=== PATIENT | female | born 1935 | race Caucasian/White ===

== ENCOUNTER 2018-01-20 05:41 | Inpatient (IN) | payer MEDICARE, BC ==
[~2018-01-20] VITALS: Ht 165.1 cm; Wt 58.6 kg
[~2018-01-20 05:41] MED LIST: ACUL5 LEFTEYE; BILB500C PO; DIGO250T4 PO; DILT240C92 PO; FISH1CAP29 PO; GEMF600T3 PO; GLUC-202 PO; LUTE20TA PO; PRIMARIN PO; RANI150T12 PO; ROSU20TA PO; SITA1TAB4 PO; [UNRECOGNIZED DRUG - CODE] OP
[2018-01-20] MEDS ORDERED: IPRATROPIUM BROMIDE (0.02%) 0.5MG/2.5ML NEB HHN STA ×2 (05:58→06:10)
[2018-01-20] MEDS ORDERED: METHYLPREDNISOLONE SOD SUCC 125 MG/2 ML VIAL IV STA (05:58)
[2018-01-20] MEDS ORDERED: ALBUTEROL (0.083%) 2.5MG/3ML NEB HHN SCH (06:00)
[2018-01-20] MEDS ORDERED: ALBUTEROL (0.083%) 2.5MG/3ML NEB HHN STA (06:10)
[2018-01-20] MEDS ORDERED: MAGNESIUM 2 G PREMIX 50 ML IV STA (06:10)
[2018-01-20 06:30] LABS: BASOPHILS % 0.7 % (0.0-2.0); EOSINOPHILS % 4.1 % (0.0-5.0); HEMATOCRIT. 51.1 % (36.0-48.0); HEMOGLOBIN. 16.4 g/dL (12.0-16.0); LYMPHOCYTES % 37.1 % (20.0-50.0); MEAN CORPUSCULAR HEMOGLOBIN 31.3 pg (28.0-32.0); MEAN CORPUSCULAR VOLUME 97.2 fL (81.0-99.0); MEAN PLATELET VOLUME 9.8 fl (7.4-10.4); MONOCYTES % 5.9 % (2.0-8.0); NEUTROPHILS % 52.2 % (40.0-76.0); PLATELET 219 x1000/uL (130-400); RED BLOOD CELL COUNT 5.26 mill/uL (4.2-5.4); RED CELL DISTRIBUTION WIDTH 14.4 % (11.6-14.6)
[2018-01-20] MEDS ORDERED: LEVOFLOXACIN 500MG PREMIX 100 ML IV ONE (06:30)
[2018-01-20 06:37] LABS: INR 1.3; PARTIAL THROMBOPLASTIN TIME 26.7 sec (23.4-31.0); PROTHROMBIN TIME 13.1 sec (9.4-11.6)
[2018-01-20 06:42] LABS: CHLORIDE 107 mEq/L (98-107)
[2018-01-20 06:50] LABS: TROPONIN I 0.04 ng/mL (0.00-0.04)
[2018-01-20] MEDS ORDERED: FUROSEMIDE 40MG/4ML VIAL IVP ONE (07:00)
[2018-01-20 07:47] LABS: BG BASE EXCESS -6.6 mmol/L (-2.0-2.0); BG BILEVEL POS AIRWAY PRESSURE 15/5; BG CARBOXYHEMOGLOBIN 0.7 % (0.5-1.5); BG DEOXYHEMOGLOBIN 1.1 % (0.0-5.0); BG HCO3 ACT 18.6 mmol/L (22.0-26.0); BG METHEMOGLOBIN 0.1 % (0.0-1.5); BG OXYGEN SATURATION 98.9 % (92.0-98.5); BG OXYHEMOGLOBIN 98.1 % (94.0-97.0); BG PCO2 36.5 mmHg (35.0-45.0); BG PH 7.325 (7.350-7.450); BG PO2 158.5 mmHg (75.0-100.0); BG SAMPLE SITE RIGHT RADIAL; BG TOTAL HEMOGLOBIN 15.3 g/dL (12.0-18.0); BG VENT MODE MASK - BIPAP; BG VENT RATE 16 set
[2018-01-20] MEDS ORDERED: DIPHENHYDRAMINE 50MG/ML VIAL IV PRN (08:00)
[2018-01-20] MEDS ORDERED: DEXTROSE 50% WATER 50ML SYRINGE IV PRN (08:00)
[2018-01-20] MEDS ORDERED: NITROGLYCERIN 0.4MG TABLET SL SL PRN (08:00)
[2018-01-20 08:28] LABS: DIGOXIN 1.8 ng/mL (0.9-2.0)
[2018-01-20] MEDS: CLONIDINE 0.1MG TABLET PO PRN ×2 (09:05→22:55)
[2018-01-20] MEDS: INSULIN LISPRO 100 UNITS/ML SUBCUT SCH ×2 (13:20→23:50)
[2018-01-20 16:02] LABS: CREATINE KINASE MB FRACTION 3.4 ng/mL (0.5-3.6); TROPONIN I 0.18 ng/mL (0.00-0.04)
[2018-01-20] MEDS ORDERED: CEFTRIAXONE 1 G PREMIX 50 ML IV SCH (17:00)
[2018-01-20] MEDS ORDERED: DOCUSATE SODIUM 100MG CAPSULE PO PRN (17:19)
[2018-01-20] MEDS ORDERED: IPRATROPIUM/ALBUTEROL 0.5-3(2.5)MG/3ML NEB INH PRN (17:19)
[2018-01-20] MEDS ORDERED: NA PHOS,M-B/NA PHOS,DI-BA ENEMA 118ML PR PRN (17:19)
[2018-01-20] MEDS ORDERED: GUAIFENESIN 200MG/10ML SUGAR FREE UDC PO PRN (17:20)
[2018-01-20] MEDS ORDERED: MAGNESIUM/ALUMINUM HYDROXIDE/SIMETHICONE 30ML UDC PO PRN (17:20)
[2018-01-20] MEDS ORDERED: ACETAMINOPHEN 325MG TABLET PO PRN (17:21)
[2018-01-20] MEDS ORDERED: TRAMADOL 50MG TABLET PO PRN (17:21)
[2018-01-20] MEDS ORDERED: ONDANSETRON HCL 4MG/2ML VIAL IV PRN (17:22)
[2018-01-20] MEDS: CARVEDILOL 3.125 MG TABLET PO SCH (18:43)
[2018-01-20] MEDS ORDERED: ZOLPIDEM TARTRATE 5MG TABLET PO PRN (21:00)
[2018-01-20 22:27] LABS: CREATINE KINASE MB FRACTION 2.9 ng/mL (0.5-3.6); TROPONIN I 0.12 ng/mL (0.00-0.04)
[2018-01-20 23:09] VITALS: BP 161/96
[2018-01-20 23:10] VITALS: BP 161/96
[2018-01-20] MEDS: BLOOD SUGAR DIAGNOSTIC STRIP TEST SCH (23:37)
[2018-01-20] MEDS: ASPIRIN 325MG EC TABLET PO SCH (23:53)
[2018-01-20 23:56] VITALS: BP 151/67
[2018-01-21] VITALS (13 sets, daily range): BP systolic 121–167; BP diastolic 54–97
[2018-01-21] MEDS: DILTIAZEM HCL 60MG TABLET PO SCH ×3 (00:02→12:22)
[2018-01-21] MEDS: CARVEDILOL 3.125 MG TABLET PO SCH ×2 (06:17→17:06)
[2018-01-21] MEDS: BLOOD SUGAR DIAGNOSTIC STRIP TEST SCH ×4 (06:20→21:14)
[2018-01-21] MEDS ORDERED: INFLUENZA VIRUS VACCINE 0.5ML SYR IM ONE (08:00)
[2018-01-21] MEDS ORDERED: LEVOFLOXACIN 250MG PREMIX 50 ML IV SCH (08:00)
[2018-01-21] MEDS: FUROSEMIDE 40MG/4ML VIAL IVP SCH ×2 (08:53→21:17)
[2018-01-21] MEDS: GUAIFENESIN/DM 600MG/30MG ER TAB 12HR PO SCH ×2 (08:53→21:17)
[2018-01-21] MEDS: FAMOTIDINE 20MG/2ML VIAL IV SCH (08:54)
[2018-01-21] MEDS: SPIRONOLACTONE 25MG TABLET PO SCH ×2 (08:54→21:17)
[2018-01-21] MEDS: INSULIN LISPRO 100 UNITS/ML SUBCUT SCH ×4 (08:57→21:38)
[2018-01-21] MEDS ORDERED: ENOXAPARIN 40MG/0.4ML SYR SUBCUT SCH (09:00)
[2018-01-21] MEDS: ASPIRIN 325MG EC TABLET PO SCH (09:00)
[2018-01-21 11:30] LABS: BASOPHILS % 0.3 % (0.0-2.0); HEMOGLOBIN. 12.7 g/dL (12.0-16.0); LYMPHOCYTES % 8.8 % (20.0-50.0); MEAN CORPUSCULAR HEMOGLOBIN 30.9 pg (28.0-32.0); MEAN CORPUSCULAR VOLUME 95.1 fL (81.0-99.0); MEAN PLATELET VOLUME 9.3 fl (7.4-10.4); MONOCYTES % 7.7 % (2.0-8.0); NEUTROPHILS % 83.2 % (40.0-76.0); PLATELET 150 x1000/uL (130-400); RED CELL DISTRIBUTION WIDTH 14.8 % (11.6-14.6)
[2018-01-21 11:46] LABS: CHLORIDE 103 mEq/L (98-107)
[2018-01-21] MEDS: DIGOXIN 125MCG TABLET PO SCH (18:00)
[2018-01-21] MEDS ORDERED: CEFTRIAXONE 1 G PREMIX 50 ML IV SCH (18:00)
[2018-01-22] VITALS (12 sets, daily range): BP systolic 111–179; BP diastolic 57–95
[2018-01-22] MEDS: DILTIAZEM HCL 60MG TABLET PO SCH ×5 (00:01→18:00)
[2018-01-22] MEDS: CLONIDINE 0.1MG TABLET PO PRN (02:29)
[2018-01-22] MEDS: CARVEDILOL 3.125 MG TABLET PO SCH ×2 (06:22→18:23)
[2018-01-22] MEDS: BLOOD SUGAR DIAGNOSTIC STRIP TEST SCH ×4 (06:50→20:12)
[2018-01-22] MEDS: INSULIN LISPRO 100 UNITS/ML SUBCUT SCH ×4 (08:08→20:53)
[2018-01-22] MEDS: FAMOTIDINE 20MG/2ML VIAL IV SCH (08:08)
[2018-01-22] MEDS: ENOXAPARIN 30MG/0.3ML SYR SUBCUT SCH (08:08)
[2018-01-22] MEDS: GUAIFENESIN/DM 600MG/30MG ER TAB 12HR PO SCH ×2 (08:08→20:58)
[2018-01-22] MEDS: ASPIRIN 325MG EC TABLET PO SCH (09:00)
[2018-01-22] MEDS ORDERED: LEVOFLOXACIN 250MG PREMIX 50 ML IV SCH (09:30)
[2018-01-22] MEDS: FUROSEMIDE 40MG/4ML VIAL IVP SCH ×2 (09:36→20:55)
[2018-01-22] MEDS: SPIRONOLACTONE 25MG TABLET PO SCH ×2 (09:36→21:02)
[2018-01-22] MEDS: LIDOCAINE 5% PATCH TOP SCH (13:05)
[2018-01-22] MEDS: DIGOXIN 125MCG TABLET PO SCH (19:27)
[2018-01-22] MEDS: IPRATROPIUM/ALBUTEROL 0.5-3(2.5)MG/3ML NEB HHN SCH (20:42)
[2018-01-22] MEDS: BUDESONIDE 0.5MG/2ML NEB HHN SCH (20:42)
[2018-01-23] VITALS (14 sets, daily range): BP systolic 118–170; BP diastolic 51–97
[2018-01-23] MEDS: DILTIAZEM HCL 60MG TABLET PO SCH ×4 (00:16→17:46)
[2018-01-23] MEDS: IPRATROPIUM/ALBUTEROL 0.5-3(2.5)MG/3ML NEB HHN SCH ×4 (02:37→20:16)
[2018-01-23] MEDS: BLOOD SUGAR DIAGNOSTIC STRIP TEST SCH ×4 (06:13→20:48)
[2018-01-23] MEDS: CARVEDILOL 3.125 MG TABLET PO SCH ×2 (06:44→17:46)
[2018-01-23] MEDS: INSULIN LISPRO 100 UNITS/ML SUBCUT SCH ×4 (08:06→21:19)
[2018-01-23] MEDS: FUROSEMIDE 40MG/4ML VIAL IVP SCH ×2 (08:07→21:16)
[2018-01-23] MEDS: GUAIFENESIN/DM 600MG/30MG ER TAB 12HR PO SCH ×2 (08:07→21:16)
[2018-01-23] MEDS: FAMOTIDINE 20MG/2ML VIAL IV SCH (08:07)
[2018-01-23] MEDS: SPIRONOLACTONE 25MG TABLET PO SCH ×2 (08:07→21:17)
[2018-01-23] MEDS: ENOXAPARIN 30MG/0.3ML SYR SUBCUT SCH (08:07)
[2018-01-23] MEDS: ASPIRIN 325MG EC TABLET PO SCH (08:08)
[2018-01-23] MEDS: LIDOCAINE 5% PATCH TOP SCH (08:18)
[2018-01-23] MEDS: BUDESONIDE 0.5MG/2ML NEB HHN SCH ×2 (08:25→13:41)
[2018-01-23] MEDS ORDERED: LEVOFLOXACIN 250MG PREMIX 50 ML IV SCH (11:00)
[2018-01-23] MEDS: DIGOXIN 125MCG TABLET PO SCH (17:44)
[2018-01-24] VITALS (11 sets, daily range): BP systolic 112–162; BP diastolic 56–96
[2018-01-24] MEDS: DILTIAZEM HCL 60MG TABLET PO SCH ×3 (00:15→12:39)
[2018-01-24] MEDS: IPRATROPIUM/ALBUTEROL 0.5-3(2.5)MG/3ML NEB HHN SCH ×2 (02:26→13:41)
[2018-01-24] MEDS: BLOOD SUGAR DIAGNOSTIC STRIP TEST SCH ×2 (06:02→12:32)
[2018-01-24] MEDS: CARVEDILOL 3.125 MG TABLET PO SCH (06:07)
[2018-01-24] MEDS: INSULIN LISPRO 100 UNITS/ML SUBCUT SCH (07:59)
[2018-01-24] MEDS: FAMOTIDINE 20MG/2ML VIAL IV SCH (08:00)
[2018-01-24] MEDS: ENOXAPARIN 30MG/0.3ML SYR SUBCUT SCH (08:01)
[2018-01-24] MEDS: ASPIRIN 325MG EC TABLET PO SCH (08:01)
[2018-01-24] MEDS: GUAIFENESIN/DM 600MG/30MG ER TAB 12HR PO SCH (08:01)
[2018-01-24] MEDS: SPIRONOLACTONE 25MG TABLET PO SCH (08:02)
[2018-01-24] MEDS: FUROSEMIDE 40MG/4ML VIAL IVP SCH (08:02)
[2018-01-24] MEDS: LIDOCAINE 5% PATCH TOP SCH (08:04)
[2018-01-24] MEDS ORDERED: BLOOD SUGAR DIAGNOSTIC STRIP TEST SCH (11:50)
[2018-01-24] MEDS ORDERED: DEXTROSE 50% WATER 50ML SYRINGE IV PRN (12:00)
[2018-01-24] MEDS ORDERED: INSULIN LISPRO 100 UNITS/ML SUBCUT SCH (12:20)
== END 2018-01-24 16:00 | disposition home health service (06) | DRG 291 ==
LOC: ER 05:45 → 3WST 06:55 → EDBEDREQ 06:59 → EDBEDREQTM 06:59 → SUPCPDRO 07:55 → ENRESERV 19:25 → CANRESERV 19:25 → ENRESERV 20:51
PROVIDERS: ADMIT Internal Medicine; ATTEND Internal Medicine
PROC: 5A09457 Assistance with Respiratory Ventilation, 24-96 Consecutive Hours, Continuous Positive Airway Pressure (ICD-10-PCS; principal; 2018-01-20)
DX: I11.0 Hypertensive heart disease with heart failure (principal); J96.01 Acute respiratory failure with hypoxia; J18.9 Pneumonia, unspecified organism; E44.0 Moderate protein-calorie malnutrition; J44.0 Chronic obstructive pulmonary disease with (acute) lower respiratory infection; I48.91 Unspecified atrial fibrillation; I27.20 Pulmonary hypertension, unspecified; J44.1 Chronic obstructive pulmonary disease with (acute) exacerbation; I50.33 Acute on chronic diastolic (congestive) heart failure; E11.9 Type 2 diabetes mellitus without complications; E78.5 Hyperlipidemia, unspecified; H91.90 Unspecified hearing loss, unspecified ear; Z96.612 Presence of left artificial shoulder joint; Z96.659 Presence of unspecified artificial knee joint; K21.9 Gastro-esophageal reflux disease without esophagitis; Z85.42 Personal history of malignant neoplasm of other parts of uterus; Z85.51 Personal history of malignant neoplasm of bladder; Z86.19 Personal history of other infectious and parasitic diseases; Z95.0 Presence of cardiac pacemaker; Z88.5 Allergy status to narcotic agent; Z88.0 Allergy status to penicillin; Z88.2 Allergy status to sulfonamides; Z88.8 Allergy status to other drugs, medicaments and biological substances; Z79.899 Other long term (current) drug therapy
CPT/HCPCS: 36415; 36600; 71045; 80053; 80061; 80162; 82375; 82550; 82553; 82805; 82962; 83036; 83605; 83880; 84484; 85025; 85610; 85730; 87040; 87086; 87804; 90686; 93005; 93306; 93970; 94640; 94660; 96365; 96375; 97116; 97162; 97164; 97166; 99291; J0696; J1650; J1815; J1940; J1956; J2930; J3475; J3490; J7040; J7611; J7620; J7626; A4315

== ENCOUNTER 2018-08-02 12:28 | Inpatient (IN) | payer MEDICARE, BC ==
[~2018-08-02] VITALS: Ht 165.1 cm; Wt 67.2 kg
[~2018-08-02 12:28] MED LIST changes: -ACUL5 LEFTEYE; -BILB500C PO; -DIGO250T4 PO; -DILT240C92 PO; -FISH1CAP29 PO; +FLUT16SP15 NS; +FURO40TA5 PO; -GEMF600T3 PO; +GLIM2TAB2 PO; -GLUC-202 PO; +HYDR100T26 PO; +LIP40 PO; +LOSA100T14 PO; +METO100T16 PO; +P20 MT; -PRIMARIN PO; -RANI150T12 PO; -SITA1TAB4 PO; +VALS80TA30 PO; +XAR15 PO; -[UNRECOGNIZED DRUG - CODE] OP
[2018-08-02 13:37] LABS: BASOPHILS % 0.8 % (0.0-2.0); EOSINOPHILS % 0.9 % (0.0-5.0); HEMATOCRIT. 35.8 % (36.0-48.0); HEMOGLOBIN. 11.8 g/dL (12.0-16.0); LYMPHOCYTES % 8.7 % (20.0-50.0); MEAN CORPUSCULAR HEMOGLOBIN 30.7 pg (28.0-32.0); MEAN CORPUSCULAR VOLUME 93.3 fL (81.0-99.0); MEAN PLATELET VOLUME 9.8 fl (7.4-10.4); MONOCYTES % 5.8 % (2.0-8.0); NEUTROPHILS % 83.8 % (40.0-76.0); PLATELET 160 x1000/uL (130-400); RED BLOOD CELL COUNT 3.84 mill/uL (4.2-5.4); RED CELL DISTRIBUTION WIDTH 17.6 % (11.6-14.6)
[2018-08-02 13:38] LABS: CHLORIDE 106 mEq/L (98-107)
[2018-08-02] MEDS ORDERED: FUROSEMIDE 40MG/4ML VIAL IVP ONE (14:00)
[2018-08-02] MEDS ORDERED: DEXTROSE 50% WATER 50ML SYRINGE IV PRN (14:15)
[2018-08-02 14:38] LABS: INR 1.2; PARTIAL THROMBOPLASTIN TIME 28.3 sec (23.4-31.0); PROTHROMBIN TIME 11.6 sec (9.1-11.1)
[2018-08-02 15:24] LABS: CLARITY URINE CLEAR (CLEAR); COLOR URINE YELLOW (YELLOW); KETONES URINE NEGATIVE (NEGATIVE); LEUKOCYTE ESTERASE URINE TRACE (NEGATIVE); NITRITE URINE POSITIVE (NEGATIVE); OCCULT BLOOD URINE NEGATIVE (NEGATIVE); PROTEIN URINE 1+ (NEGATIVE); UROBILINOGEN URINE 0.2 E.U./dL (0.2-1.0)
[2018-08-02] MEDS ORDERED: DILTIAZEM HCL 5MG/ML 5ML VIAL IV PRN (16:38)
[2018-08-02 16:47] VITALS: BP 151/87
[2018-08-02] MEDS: BLOOD SUGAR DIAGNOSTIC STRIP TEST SCH ×2 (17:04→21:01)
[2018-08-02] MEDS: INSULIN LISPRO 100 UNITS/ML SUBCUT SCH ×2 (17:05→21:08)
[2018-08-02] MEDS: ENOXAPARIN 60MG/0.6ML SYR SUBCUT SCH (17:09)
[2018-08-02] MEDS: DILTIAZEM HCL 60MG TABLET PO SCH (17:10)
[2018-08-02 17:17] VITALS: BP 146/84
[2018-08-02 18:00] VITALS: BP 125/77
[2018-08-02] MEDS ORDERED: SODIUM POLYSTYRENE SULFONATE 15 G/60 ML BOT PO NR (18:00)
[2018-08-02 20:00] VITALS: BP 133/71
[2018-08-02] MEDS: AMLODIPINE 5MG TABLET PO SCH (21:08)
[2018-08-02 22:00] VITALS: BP 148/84
[2018-08-03] VITALS (13 sets, daily range): BP systolic 110–140; BP diastolic 55–103
[2018-08-03] MEDS: DILTIAZEM HCL 60MG TABLET PO SCH ×5 (00:57→23:11)
[2018-08-03 06:35] LABS: BASOPHILS % 0.7 % (0.0-2.0); EOSINOPHILS % 4.2 % (0.0-5.0); HEMATOCRIT. 31.1 % (36.0-48.0); HEMOGLOBIN. 10.4 g/dL (12.0-16.0); LYMPHOCYTES % 22.3 % (20.0-50.0); MEAN CORPUSCULAR VOLUME 92.4 fL (81.0-99.0); MEAN PLATELET VOLUME 9.2 fl (7.4-10.4); MONOCYTES % 10.3 % (2.0-8.0); NEUTROPHILS % 62.5 % (40.0-76.0); PLATELET 138 x1000/uL (130-400); RED BLOOD CELL COUNT 3.37 mill/uL (4.2-5.4); RED CELL DISTRIBUTION WIDTH 17.3 % (11.6-14.6)
[2018-08-03] MEDS: BLOOD SUGAR DIAGNOSTIC STRIP TEST SCH ×4 (06:43→20:55)
[2018-08-03] MEDS: INSULIN LISPRO 100 UNITS/ML SUBCUT SCH ×4 (07:20→20:55)
[2018-08-03] MEDS: AMLODIPINE 5MG TABLET PO SCH (07:36)
[2018-08-03] MEDS: POTASSIUM CHLORIDE 20MEQ TABLET SR PO SCH (12:27)
[2018-08-03] MEDS: FUROSEMIDE 40MG/4ML VIAL IVP SCH (12:27)
[2018-08-03] MEDS ORDERED: IPRATROPIUM/ALBUTEROL 0.5-3(2.5)MG/3ML NEB HHN PRN (14:30)
[2018-08-03] MEDS ORDERED: LEVOFLOXACIN 500MG PREMIX 100 ML IV NR (16:00)
[2018-08-03] MEDS: ENOXAPARIN 60MG/0.6ML SYR SUBCUT SCH (16:47)
[2018-08-03] MEDS: BUDESONIDE 0.5MG/2ML NEB HHN SCH (20:21)
[2018-08-03] MEDS: IPRATROPIUM/ALBUTEROL 0.5-3(2.5)MG/3ML NEB HHN SCH (20:21)
[2018-08-04] VITALS (13 sets, daily range): BP systolic 81–153; BP diastolic 50–109
[2018-08-04] MEDS: IPRATROPIUM/ALBUTEROL 0.5-3(2.5)MG/3ML NEB HHN SCH ×4 (02:04→20:46)
[2018-08-04] MEDS: DILTIAZEM HCL 60MG TABLET PO SCH ×3 (06:01→17:34)
[2018-08-04 07:17] LABS: BASOPHILS % 0.9 % (0.0-2.0); HEMATOCRIT. 31.6 % (36.0-48.0); HEMOGLOBIN. 10.4 g/dL (12.0-16.0); LYMPHOCYTES % 23.7 % (20.0-50.0); MEAN CORPUSCULAR HEMOGLOBIN 30.7 pg (28.0-32.0); MEAN CORPUSCULAR VOLUME 92.9 fL (81.0-99.0); MEAN PLATELET VOLUME 9.2 fl (7.4-10.4); MONOCYTES % 12.5 % (2.0-8.0); NEUTROPHILS % 58.9 % (40.0-76.0); PLATELET 142 x1000/uL (130-400); RED CELL DISTRIBUTION WIDTH 17.6 % (11.6-14.6)
[2018-08-04] MEDS: INSULIN LISPRO 100 UNITS/ML SUBCUT SCH ×4 (07:20→21:00)
[2018-08-04] MEDS: BUDESONIDE 0.5MG/2ML NEB HHN SCH ×2 (07:51→20:46)
[2018-08-04] MEDS: FUROSEMIDE 40MG/4ML VIAL IVP SCH (08:41)
[2018-08-04] MEDS: POTASSIUM CHLORIDE 20MEQ TABLET SR PO SCH (08:42)
[2018-08-04] MEDS: BLOOD SUGAR DIAGNOSTIC STRIP TEST SCH ×3 (11:39→21:16)
[2018-08-04] MEDS: LEVOFLOXACIN 250MG PREMIX 50 ML IV SCH (13:17)
[2018-08-04] MEDS: ENOXAPARIN 60MG/0.6ML SYR SUBCUT SCH (17:36)
[2018-08-05] VITALS (13 sets, daily range): BP systolic 108–148; BP diastolic 65–83
[2018-08-05] MEDS: DILTIAZEM HCL 60MG TABLET PO SCH ×5 (00:11→23:35)
[2018-08-05] MEDS: IPRATROPIUM/ALBUTEROL 0.5-3(2.5)MG/3ML NEB HHN SCH ×3 (02:11→16:04)
[2018-08-05] MEDS: BLOOD SUGAR DIAGNOSTIC STRIP TEST SCH ×4 (06:23→20:40)
[2018-08-05 06:51] LABS: BASOPHILS % 0.7 % (0.0-2.0); EOSINOPHILS % 2.7 % (0.0-5.0); HEMATOCRIT. 30.9 % (36.0-48.0); HEMOGLOBIN. 10.4 g/dL (12.0-16.0); LYMPHOCYTES % 27.1 % (20.0-50.0); MEAN CORPUSCULAR HEMOGLOBIN 31.1 pg (28.0-32.0); MEAN CORPUSCULAR VOLUME 92.7 fL (81.0-99.0); MEAN PLATELET VOLUME 9.2 fl (7.4-10.4); MONOCYTES % 13.3 % (2.0-8.0); NEUTROPHILS % 56.2 % (40.0-76.0); PLATELET 138 x1000/uL (130-400); RED BLOOD CELL COUNT 3.33 mill/uL (4.2-5.4); RED CELL DISTRIBUTION WIDTH 17.3 % (11.6-14.6)
[2018-08-05] MEDS: INSULIN LISPRO 100 UNITS/ML SUBCUT SCH ×4 (07:20→20:40)
[2018-08-05] MEDS: BUDESONIDE 0.5MG/2ML NEB HHN SCH (08:59)
[2018-08-05] MEDS: POTASSIUM CHLORIDE 20MEQ TABLET SR PO SCH (09:14)
[2018-08-05] MEDS: FUROSEMIDE 40MG/4ML VIAL IVP SCH (09:15)
[2018-08-05] MEDS: LEVOFLOXACIN 250MG PREMIX 50 ML IV SCH (14:55)
[2018-08-05] MEDS: ENOXAPARIN 60MG/0.6ML SYR SUBCUT SCH (17:37)
[2018-08-06] VITALS (12 sets, daily range): BP systolic 116–147; BP diastolic 62–88
[2018-08-06] MEDS: DILTIAZEM HCL 60MG TABLET PO SCH (05:28)
[2018-08-06] MEDS: BLOOD SUGAR DIAGNOSTIC STRIP TEST SCH ×4 (06:23→20:58)
[2018-08-06 06:38] LABS: EOSINOPHILS % 5.8 % (0.0-5.0); HEMATOCRIT. 29.9 % (36.0-48.0); HEMOGLOBIN. 10.2 g/dL (12.0-16.0); LYMPHOCYTES % 27.9 % (20.0-50.0); MEAN CORPUSCULAR HEMOGLOBIN 31.7 pg (28.0-32.0); MEAN CORPUSCULAR VOLUME 92.5 fL (81.0-99.0); MEAN PLATELET VOLUME 9.1 fl (7.4-10.4); MONOCYTES % 12.2 % (2.0-8.0); NEUTROPHILS % 53.1 % (40.0-76.0); PLATELET 147 x1000/uL (130-400); RED BLOOD CELL COUNT 3.23 mill/uL (4.2-5.4); RED CELL DISTRIBUTION WIDTH 17.2 % (11.6-14.6)
[2018-08-06] MEDS: INSULIN LISPRO 100 UNITS/ML SUBCUT SCH ×4 (07:20→20:59)
[2018-08-06] MEDS: FUROSEMIDE 40MG/4ML VIAL IVP SCH (08:09)
[2018-08-06] MEDS: POTASSIUM CHLORIDE 20MEQ TABLET SR PO SCH (08:17)
[2018-08-06] MEDS: BUDESONIDE 0.5MG/2ML NEB HHN SCH ×2 (09:27→20:57)
[2018-08-06] MEDS: IPRATROPIUM/ALBUTEROL 0.5-3(2.5)MG/3ML NEB HHN SCH ×3 (09:27→20:56)
[2018-08-06] MEDS: LEVOFLOXACIN 250MG TABLET PO SCH (10:50)
[2018-08-06] MEDS: DILTIAZEM HCL 90MG TABLET PO SCH ×2 (11:15→17:20)
[2018-08-06] MEDS: METOPROLOL TARTRATE 50MG TABLET PO SCH ×2 (13:11→21:43)
[2018-08-06] MEDS: ENOXAPARIN 60MG/0.6ML SYR SUBCUT SCH (16:43)
[2018-08-07] VITALS (13 sets, daily range): BP systolic 108–154; BP diastolic 52–86
[2018-08-07] MEDS: DILTIAZEM HCL 90MG TABLET PO SCH ×4 (00:12→17:16)
[2018-08-07] MEDS: IPRATROPIUM/ALBUTEROL 0.5-3(2.5)MG/3ML NEB HHN SCH ×4 (02:09→20:48)
[2018-08-07 06:59] LABS: BASOPHILS % 1.1 % (0.0-2.0); EOSINOPHILS % 6.1 % (0.0-5.0); HEMATOCRIT. 30.8 % (36.0-48.0); HEMOGLOBIN. 10.5 g/dL (12.0-16.0); LYMPHOCYTES % 20.4 % (20.0-50.0); MEAN CORPUSCULAR HEMOGLOBIN 31.6 pg (28.0-32.0); MEAN CORPUSCULAR VOLUME 92.8 fL (81.0-99.0); MEAN PLATELET VOLUME 9.2 fl (7.4-10.4); MONOCYTES % 11.7 % (2.0-8.0); NEUTROPHILS % 60.7 % (40.0-76.0); PLATELET 151 x1000/uL (130-400); RED BLOOD CELL COUNT 3.32 mill/uL (4.2-5.4); RED CELL DISTRIBUTION WIDTH 16.8 % (11.6-14.6)
[2018-08-07] MEDS: INSULIN LISPRO 100 UNITS/ML SUBCUT SCH ×4 (07:10→22:18)
[2018-08-07] MEDS: BLOOD SUGAR DIAGNOSTIC STRIP TEST SCH ×4 (07:10→21:00)
[2018-08-07] MEDS: POTASSIUM CHLORIDE 20MEQ TABLET SR PO SCH (08:07)
[2018-08-07] MEDS: METOPROLOL TARTRATE 50MG TABLET PO SCH ×2 (08:07→22:17)
[2018-08-07 08:22] LABS: PHOSPHORUS 4.4 mg/dL (2.5-4.9)
[2018-08-07] MEDS: LEVOFLOXACIN 250MG TABLET PO SCH (11:08)
[2018-08-07] MEDS: ENOXAPARIN 60MG/0.6ML SYR SUBCUT SCH (17:16)
[2018-08-08] VITALS (12 sets, daily range): BP systolic 110–140; BP diastolic 57–84
[2018-08-08] MEDS: DILTIAZEM HCL 90MG TABLET PO SCH ×4 (00:21→17:55)
[2018-08-08] MEDS: BLOOD SUGAR DIAGNOSTIC STRIP TEST SCH ×3 (06:50→17:13)
[2018-08-08] MEDS: INSULIN LISPRO 100 UNITS/ML SUBCUT SCH ×3 (07:08→17:13)
[2018-08-08] MEDS: POTASSIUM CHLORIDE 20MEQ TABLET SR PO SCH (07:56)
[2018-08-08] MEDS: METOPROLOL TARTRATE 50MG TABLET PO SCH (07:56)
[2018-08-08] MEDS: IPRATROPIUM/ALBUTEROL 0.5-3(2.5)MG/3ML NEB HHN SCH ×2 (08:18→13:30)
[2018-08-08 09:28] LABS: BASOPHILS % 0.9 % (0.0-2.0); EOSINOPHILS % 6.2 % (0.0-5.0); HEMATOCRIT. 32.7 % (36.0-48.0); HEMOGLOBIN. 11.2 g/dL (12.0-16.0); LYMPHOCYTES % 20.3 % (20.0-50.0); MEAN CORPUSCULAR VOLUME 93.5 fL (81.0-99.0); MONOCYTES % 12.8 % (2.0-8.0); NEUTROPHILS % 59.8 % (40.0-76.0); PLATELET 152 x1000/uL (130-400)
[2018-08-08] MEDS: LEVOFLOXACIN 250MG TABLET PO SCH (10:00)
== END 2018-08-08 18:40 | disposition home health service (06) | DRG 871 ==
LOC: ER 12:28 → 3WST 13:59 → ENRESERV 14:21 → CANRESERV 14:21 → ENRESERV 15:24
PROVIDERS: ADMIT Family Medicine Adult Medicine; ATTEND Family Medicine Adult Medicine
DX: A41.9 Sepsis, unspecified organism (principal); J96.00 Acute respiratory failure, unspecified whether with hypoxia or hypercapnia; I50.33 Acute on chronic diastolic (congestive) heart failure; I13.0 Hypertensive heart and chronic kidney disease with heart failure and stage 1 through stage 4 chronic kidney disease, or unspecified chronic kidney disease; N17.9 Acute kidney failure, unspecified; N39.0 Urinary tract infection, site not specified; J84.9 Interstitial pulmonary disease, unspecified; E87.5 Hyperkalemia; J44.9 Chronic obstructive pulmonary disease, unspecified; N18.9 Chronic kidney disease, unspecified; F03.90 Unspecified dementia, unspecified severity, without behavioral disturbance, psychotic disturbance, mood disturbance, and anxiety; Z96.612 Presence of left artificial shoulder joint; R26.9 Unspecified abnormalities of gait and mobility; R53.81 Other malaise; D64.9 Anemia, unspecified; E11.22 Type 2 diabetes mellitus with diabetic chronic kidney disease; E78.5 Hyperlipidemia, unspecified; H91.90 Unspecified hearing loss, unspecified ear; I27.20 Pulmonary hypertension, unspecified; I48.2 Chronic atrial fibrillation; I49.5 Sick sinus syndrome; K21.9 Gastro-esophageal reflux disease without esophagitis; M19.90 Unspecified osteoarthritis, unspecified site; Z79.01 Long term (current) use of anticoagulants; Z85.51 Personal history of malignant neoplasm of bladder; Z90.710 Acquired absence of both cervix and uterus; Z95.0 Presence of cardiac pacemaker; Z99.81 Dependence on supplemental oxygen; Z88.0 Allergy status to penicillin; Z88.2 Allergy status to sulfonamides; Z88.6 Allergy status to analgesic agent; Z88.5 Allergy status to narcotic agent; Z79.899 Other long term (current) drug therapy
CPT/HCPCS: 36415; 71045; 80048; 80053; 81003; 82962; 83735; 83880; 84100; 84484; 85025; 85610; 85730; 92523; 93005; 93306; 94640; 96372; 96374; 97162; 97166; 99285; J1650; J1815; J1940; J1956; J7050; J7620; J7626